=== PATIENT | male | born 1970 | race African-American/Black ===

== ENCOUNTER 2022-08-24 13:44 | Inpatient (IN) ==
[2022-08-24 14:46] LABS: Basophils # 0.1 10*3/uL (0.0-0.2); Basophils % 0.5 % (0.0-0.8); Eosinophils # 0.1 10*3/uL (0.0-0.87); Eosinophils % 0.5 % (0.00-10.9); Hematocrit 43.2 VOL% (42.0-52.0); Hemoglobin 13.6 GM/DL (14.0-18.0); Immature Granulocytes % 0.6 %; Immature Granulocytes Absolute 0.09 #; Lymphocytes # 2.5 10*3/uL (1.4-4.0); Lymphocytes % 16.8 % (21.2-54.2); Mean Corpuscular HGB Conc 31.5 GM/DL (32-36); Mean Corpuscular Volume 76.1 FL (87-102); Monocytes # 1.4 10*3/uL (0.11-0.8); Monocytes % 9.6 % (1.7-12.7); Platelet Count 381 T/CUMM (130-400); Red Blood Count 5.68 MC/CUMM (3.8-5.5); Red Cell Distribution Width 21.2 % (9.3-17.3)
[2022-08-24 15:04] LABS: Alanine Aminotransferase 15 U/L (16-61); Albumin 2.1 G/DL (3.4-5.0); Alkaline Phosphatase 147 U/L (45-117); Aspartate Amino Transferase 37 U/L (0-37); Bilirubin,Total < 0.39 MG/DL (0.20-1.00); Blood Urea Nitrogen 20 MG/DL (7-18); Calcium 8.5 MG/DL (8.5-10.1); Carbon Dioxide 28 MMOL/L (21-32); Chloride 118 MMOL/L (98-107); Glucose 96 MG/DL (74-106); Osmolality,Calculated 305.6 MOS/KG (273-304); Potassium 3.7 MMOL/L (3.5-5.1); Sodium 153 MMOL/L (136-145); Total Protein 7.2 G/DL (6.4-8.2)
[2022-08-24] MEDS ORDERED: SODIUM CHLORIDE 0.9% 1,000 ML IV STA (16:04)
[2022-08-24] MEDS ORDERED: hydrALAZINE 20 MG/1 ML VIAL IV PRN (17:30)
[2022-08-24] MEDS ORDERED: ONDANSETRON 4 MG/2 ML VIAL IV PRN (17:30)
[2022-08-24] MEDS ORDERED: ALBUTEROL/IPRATROPIUM 3 ML NEB RESP TX PRN (17:30)
[2022-08-24] MEDS ORDERED: cefTRIAXone 1,000 MG in SODIUM CHLORIDE 0.9% 100 ML IV SCH (18:00)
[2022-08-24] MEDS: DEXTROSE 5% NACL 0.45% 1,000 ML IV SCH (18:39)
[2022-08-24 19:34] LABS: % Iron Saturation 14.6 % (18-50)
[2022-08-24 19:43] LABS: Folate 4.39 NG/ML (5.38-24.0)
[2022-08-24] MEDS: PIPERACILLIN/TAZOBACTAM 3,375 MG in SODIUM CHLORIDE 0.9% 100 ML IV SCH (20:47)
[2022-08-24] MEDS ORDERED: AZITHROMYCIN INJ 500 MG in SODIUM CHLORIDE 0.9% 250 ML IV SCH (21:00)
[2022-08-24 22:56] LABS: Bilirubin,Urine Negative (Negative); Blood, Urine Negative (Negative); Glucose,Urine (UA) Negative (Negative); Ketones,Urine 15 mg/dL (Negative); Nitrite,Urine Negative (Negative); Protein,Urine 30 mg/dL (Negative); Urine Appearance Clear (Clear); Urine Color Yellow (Yellow); Urine Specific Gravity 1.025 (1.001-1.035); Urine Urobilinogen 0.2 eU/dL (<2.0); Urine pH 5.5 (4.5-8.0)
[2022-08-24 23:00] LABS: Amorphous Crystals,Urine Occasional /HPF (Few); Hyaline Casts,Urine 5 /LPF (0-3); Mucus,Urine Occasional /LPF (Occasional); RBC,Urine 319 /HPF (0-4); Squamous Epithelial Cell,Urine Occasional /HPF (0-10)
[2022-08-25] MEDS: DEXTROSE 5% NACL 0.45% 1,000 ML IV SCH (03:24)
[2022-08-25] MEDS: PIPERACILLIN/TAZOBACTAM 3,375 MG in SODIUM CHLORIDE 0.9% 100 ML IV SCH ×3 (04:22→20:41)
[2022-08-25 06:07] LABS: Basophils % 0.4 % (0.0-0.8); Eosinophils # 0.2 10*3/uL (0.0-0.87); Eosinophils % 2.1 % (0.00-10.9); Hematocrit 35.2 VOL% (42.0-52.0); Immature Granulocytes % 0.5 %; Immature Granulocytes Absolute 0.05 #; Lymphocytes # 1.8 10*3/uL (1.4-4.0); Lymphocytes % 17.2 % (21.2-54.2); Mean Corpuscular HGB Conc 31.3 GM/DL (32-36); Mean Corpuscular Volume 76.2 FL (87-102); Monocytes # 1.3 10*3/uL (0.11-0.8); Monocytes % 12.5 % (1.7-12.7); Neutrophils % 67.3 % (38.7-73.9); Platelet Count 252 T/CUMM (130-400); Red Blood Count 4.62 MC/CUMM (3.8-5.5); Red Cell Distribution Width 20.7 % (9.3-17.3); White Blood Count 10.2 T/CUMM (4-12)
[2022-08-25 06:43] LABS: Alanine Aminotransferase 10 U/L (16-61); Albumin 1.7 G/DL (3.4-5.0); Alkaline Phosphatase 112 U/L (45-117); Aspartate Amino Transferase 27 U/L (0-37); Bilirubin,Total < 0.39 MG/DL (0.20-1.00); Blood Urea Nitrogen 18 MG/DL (7-18); Calcium 7.2 MG/DL (8.5-10.1); Carbon Dioxide 19 MMOL/L (21-32); Chloride 127 MMOL/L (98-107); Cholesterol 76 MG/DL (50-200); Glucose 156 MG/DL (74-106); HDL Cholesterol 13 MG/DL (40-60); Osmolality,Calculated 311.3 MOS/KG (273-304); Potassium 4.1 MMOL/L (3.5-5.1); Risk Ratio 5.85; Sodium 155 MMOL/L (136-145); Total Protein 5.3 G/DL (6.4-8.2); Triglycerides 151 MG/DL (2-150); VLDL Cholesterol 30.2 MG/DL
[2022-08-25] MEDS: DEXTROSE 5% 1,000 ML IV SCH ×2 (10:25→17:59)
[2022-08-25] MEDS: amLODIPine 10 MG TABLET PO SCH (10:49)
[2022-08-25] MEDS ORDERED: ENOXAPARIN 40 MG/0.4 ML SYRINGE SUBCUT SCH (12:00)
[2022-08-25] MEDS ORDERED: VANCOMYCIN 125 MG CAPSULE PO SCH ×2 (14:00→14:30)
[2022-08-25 14:02] LABS: Calcium 7.8 MG/DL (8.5-10.1); Osmolality,Calculated 308.3 MOS/KG (273-304); Potassium 4.2 MMOL/L (3.5-5.1)
[2022-08-25] MEDS: VANCOMYCIN 125 MG CAPSULE PO SCH ×2 (14:36→23:27)
[2022-08-25] MEDS: CHOLECALCIFEROL 1,000 UNIT TABLET PO SCH (14:36)
[2022-08-26] MEDS: DEXTROSE 5% 1,000 ML IV SCH ×3 (00:50→15:00)
[2022-08-26] MEDS: PIPERACILLIN/TAZOBACTAM 3,375 MG in SODIUM CHLORIDE 0.9% 100 ML IV SCH ×2 (03:05→18:35)
[2022-08-26] MEDS: VANCOMYCIN 125 MG CAPSULE PO SCH ×3 (05:39→18:41)
[2022-08-26 05:59] LABS: Basophils % 0.4 % (0.0-0.8); Eosinophils # 0.3 10*3/uL (0.0-0.87); Eosinophils % 4.7 % (0.00-10.9); Hematocrit 36.2 VOL% (42.0-52.0); Hemoglobin 11.5 GM/DL (14.0-18.0); Immature Granulocytes % 0.7 %; Immature Granulocytes Absolute 0.05 #; Lymphocytes % 14.6 % (21.2-54.2); Mean Corpuscular HGB Conc 31.8 GM/DL (32-36); Mean Corpuscular Volume 75.1 FL (87-102); Monocytes # 0.8 10*3/uL (0.11-0.8); Monocytes % 10.6 % (1.7-12.7); Platelet Count 279 T/CUMM (130-400); Red Blood Count 4.82 MC/CUMM (3.8-5.5); Red Cell Distribution Width 20.8 % (9.3-17.3); White Blood Count 7.1 T/CUMM (4-12)
[2022-08-26 06:05] LABS: INR 1.1; PT Patient Result 11.9 SECS (10.1-12.1)
[2022-08-26 06:19] LABS: Alanine Aminotransferase 14 U/L (16-61); Albumin 1.8 G/DL (3.4-5.0); Alkaline Phosphatase 124 U/L (45-117); Aspartate Amino Transferase 43 U/L (0-37); Bilirubin,Total < 0.39 MG/DL (0.20-1.00); Blood Urea Nitrogen 14 MG/DL (7-18); Calcium 7.7 MG/DL (8.5-10.1); Carbon Dioxide 23 MMOL/L (21-32); Chloride 120 MMOL/L (98-107); Glucose 84 MG/DL (74-106); Osmolality,Calculated 298.9 MOS/KG (273-304); Potassium 3.4 MMOL/L (3.5-5.1); Sodium 151 MMOL/L (136-145); Total Protein 6.1 G/DL (6.4-8.2)
[2022-08-26 06:38] LABS: Hypochromia Slight; Microcytosis Slight; Platelet Estimate Adequate; Target Cells Few
[2022-08-26] MEDS: SODIUM CHLORIDE 0.9% 1,000 ML IV SCH (09:04)
[2022-08-26] MEDS ORDERED: propofoL 200 MG/20 ML VIAL IV ONE (09:38)
[2022-08-26] MEDS ORDERED: KETAMINE 500 MG/10 ML VIAL ONE (09:38)
[2022-08-26] MEDS ORDERED: LIDOCAINE 2% 5 ML VIAL ONE (09:38)
[2022-08-26] MEDS: CHOLECALCIFEROL 1,000 UNIT TABLET PO SCH (13:42)
[2022-08-26] MEDS: amLODIPine 10 MG TABLET PO SCH (13:42)
[2022-08-26] MEDS: POTASSIUM CHLORIDE RIDER 10 MEQ/100 ML PREMIX IV PRN ×3 (13:49→16:11)
[2022-08-27] MEDS: VANCOMYCIN 125 MG CAPSULE PO SCH ×4 (00:44→18:22)
[2022-08-27] MEDS: PIPERACILLIN/TAZOBACTAM 3,375 MG in SODIUM CHLORIDE 0.9% 100 ML IV SCH ×2 (02:25→15:10)
[2022-08-27 05:31] LABS: Basophils % 0.2 % (0.0-0.8); Eosinophils # 0.5 10*3/uL (0.0-0.87); Eosinophils % 11.2 % (0.00-10.9); Hematocrit 32.1 VOL% (42.0-52.0); Hemoglobin 10.2 GM/DL (14.0-18.0); Immature Granulocytes % 0.8 %; Immature Granulocytes Absolute 0.04 #; Lymphocytes # 1.5 10*3/uL (1.4-4.0); Lymphocytes % 31.6 % (21.2-54.2); Mean Corpuscular HGB Conc 31.8 GM/DL (32-36); Mean Corpuscular Volume 74.5 FL (87-102); Monocytes # 0.6 10*3/uL (0.11-0.8); Monocytes % 11.4 % (1.7-12.7); Neutrophils % 44.8 % (38.7-73.9); Platelet Count 261 T/CUMM (130-400); Red Blood Count 4.31 MC/CUMM (3.8-5.5); Red Cell Distribution Width 20.8 % (9.3-17.3); White Blood Count 4.8 T/CUMM (4-12)
[2022-08-27 05:47] LABS: Alanine Aminotransferase 15 U/L (16-61); Albumin 1.6 G/DL (3.4-5.0); Alkaline Phosphatase 111 U/L (45-117); Aspartate Amino Transferase 45 U/L (0-37); Bilirubin,Total < 0.39 MG/DL (0.20-1.00); Blood Urea Nitrogen 11 MG/DL (7-18); Calcium 7.9 MG/DL (8.5-10.1); Carbon Dioxide 25 MMOL/L (21-32); Chloride 120 MMOL/L (98-107); Glucose 83 MG/DL (74-106); Potassium 3.2 MMOL/L (3.5-5.1); Sodium 150 MMOL/L (136-145); Total Protein 5.6 G/DL (6.4-8.2)
[2022-08-27] MEDS: POTASSIUM CHLORIDE RIDER 10 MEQ/100 ML PREMIX IV PRN ×4 (06:35→11:20)
[2022-08-27 07:08] LABS: Eosinophils 7 % (0-10); Lymphocytes 29 % (20-55); Platelet Estimate Adequate; Target Cells Slight; Total Cells Counted 100
[2022-08-27] MEDS: DEXTROSE 5% 1,000 ML IV SCH ×2 (09:00→15:19)
[2022-08-27] MEDS: CHOLECALCIFEROL 1,000 UNIT TABLET PO SCH (15:20)
[2022-08-27] MEDS: amLODIPine 10 MG TABLET PO SCH (15:20)
[2022-08-28] MEDS: VANCOMYCIN 125 MG CAPSULE PO SCH ×5 (00:35→23:51)
[2022-08-28] MEDS ORDERED: TISSUE ADHESIVE 1 EACH APPLICATOR TOP ONE (06:14)
[2022-08-28] MEDS ORDERED: propofoL 200 MG/20 ML VIAL IV ONE (06:37)
[2022-08-28] MEDS ORDERED: ROCURONIUM 50 MG/5 ML VIAL IV ONE (06:37)
[2022-08-28] MEDS ORDERED: LIDOCAINE 2% 5 ML VIAL ONE (06:37)
[2022-08-28] MEDS ORDERED: fentaNYL 100 MCG/2 ML VIAL ONE ×2 (06:37→09:39)
[2022-08-28] MEDS: DEXTROSE 5% 1,000 ML IV SCH ×5 (07:35→16:28)
[2022-08-28] MEDS: SODIUM CHLORIDE 0.9% 1,000 ML IV SCH ×2 (07:35→10:22)
[2022-08-28] MEDS: PIPERACILLIN/TAZOBACTAM 3,375 MG in SODIUM CHLORIDE 0.9% 100 ML IV SCH ×3 (07:36→16:19)
[2022-08-28 07:49] LABS: Basophils % 0.5 % (0.0-0.8); Eosinophils # 0.8 10*3/uL (0.0-0.87); Hematocrit 32.3 VOL% (42.0-52.0); Hemoglobin 10.5 GM/DL (14.0-18.0); Immature Granulocytes % 1.1 %; Immature Granulocytes Absolute 0.07 #; Lymphocytes # 1.8 10*3/uL (1.4-4.0); Lymphocytes % 29.3 % (21.2-54.2); Mean Corpuscular HGB Conc 32.5 GM/DL (32-36); Mean Corpuscular Volume 74.1 FL (87-102); Monocytes # 0.5 10*3/uL (0.11-0.8); Monocytes % 8.4 % (1.7-12.7); Neutrophils % 47.7 % (38.7-73.9); Platelet Count 258 T/CUMM (130-400); Red Blood Count 4.36 MC/CUMM (3.8-5.5); Red Cell Distribution Width 20.5 % (9.3-17.3); White Blood Count 6.2 T/CUMM (4-12)
[2022-08-28 08:04] LABS: Eosinophils 14 % (0-10); Hypochromia Slight; Lymphocytes 29 % (20-55); Microcytosis Slight; Platelet Estimate Adequate; Total Cells Counted 100
[2022-08-28 08:19] LABS: Alanine Aminotransferase 15 U/L (16-61); Albumin 1.7 G/DL (3.4-5.0); Alkaline Phosphatase 106 U/L (45-117); Aspartate Amino Transferase 40 U/L (0-37); Bilirubin,Total < 0.39 MG/DL (0.20-1.00); Blood Urea Nitrogen 7 MG/DL (7-18); Calcium 7.3 MG/DL (8.5-10.1); Carbon Dioxide 22 MMOL/L (21-32); Chloride 118 MMOL/L (98-107); Glucose 77 MG/DL (74-106); Osmolality,Calculated 288.4 MOS/KG (273-304); Potassium 3.9 MMOL/L (3.5-5.1); Sodium 147 MMOL/L (136-145); Total Protein 5.2 G/DL (6.4-8.2)
[2022-08-28] MEDS ORDERED: PHENYLEPHRINE 1 MG/10 ML SYRINGE IV ONE (09:09)
[2022-08-28] MEDS ORDERED: ONDANSETRON 4 MG/2 ML VIAL ONE (09:15)
[2022-08-28] MEDS ORDERED: METHYLENE BLUE 10 ML VIAL IV ONE (09:32)
[2022-08-28] MEDS ORDERED: SUGAMMADEX 200 MG/2 ML VIAL IV ONE (09:51)
[2022-08-28] MEDS ORDERED: SEVOFLURANE 1 UNIT/15 MINUTE INH ONE (09:53)
[2022-08-28] MEDS ORDERED: LACTATED RINGERS 1,000 ML IV ONE (09:53)
[2022-08-28] MEDS: amLODIPine 10 MG TABLET PO SCH (10:23)
[2022-08-28] MEDS: CHOLECALCIFEROL 1,000 UNIT TABLET PO SCH (10:23)
[2022-08-28] MEDS ORDERED: HYDROmorphone 1 MG/1 ML SYRINGE ONE (10:43)
[2022-08-28] MEDS ORDERED: HYDROmorphone 1 MG/1 ML SYRINGE IV PRN (10:44)
[2022-08-28] MEDS ORDERED: ONDANSETRON 4 MG/2 ML VIAL IV PRN (10:44)
[2022-08-28 13:54] LABS: Calcium 7.6 MG/DL (8.5-10.1); Osmolality,Calculated 286.7 MOS/KG (273-304)
[2022-08-28] MEDS ORDERED: SODIUM CHLORIDE 0.9% 250 ML IV ONE (20:40)
[2022-08-28] MEDS ORDERED: NOREPINEPHRINE DRIP 8 MG/250 ML PREMIX IV ONE (21:16)
[2022-08-28] MEDS ORDERED: NOREPINEPHRINE DRIP 8 MG/250 ML PREMIX IV PRN (21:23)
[2022-08-28] MEDS ORDERED: SODIUM CHLORIDE 0.9% 1,000 ML IV ONE (22:44)
[2022-08-29] MEDS: DEXTROSE 5% 1,000 ML IV SCH ×3 (01:30→10:10)
[2022-08-29] MEDS: PIPERACILLIN/TAZOBACTAM 3,375 MG in SODIUM CHLORIDE 0.9% 100 ML IV SCH ×3 (01:30→18:18)
[2022-08-29] MEDS: VANCOMYCIN 125 MG CAPSULE PO SCH ×4 (05:42→23:19)
[2022-08-29 08:13] LABS: Calcium 7.2 MG/DL (8.5-10.1); Potassium 4.3 MMOL/L (3.5-5.1)
[2022-08-29 08:16] LABS: Basophils % 0.3 % (0.0-0.8); Eosinophils % 0.2 % (0.00-10.9); Hematocrit 26.9 VOL% (42.0-52.0); Hemoglobin 8.6 GM/DL (14.0-18.0); Immature Granulocytes % 1.9 %; Immature Granulocytes Absolute 0.27 #; Lymphocytes # 2.5 10*3/uL (1.4-4.0); Lymphocytes % 17.3 % (21.2-54.2); Mean Corpuscular Volume 75.8 FL (87-102); Monocytes # 1.1 10*3/uL (0.11-0.8); Monocytes % 7.3 % (1.7-12.7); Platelet Count 288 T/CUMM (130-400); Red Blood Count 3.55 MC/CUMM (3.8-5.5); Red Cell Distribution Width 21.1 % (9.3-17.3); White Blood Count 14.4 T/CUMM (4-12)
[2022-08-29 08:27] LABS: Platelet Estimate Normal
[2022-08-29] MEDS: amLODIPine 10 MG TABLET PO SCH (10:10)
[2022-08-29] MEDS: CHOLECALCIFEROL 1,000 UNIT TABLET PO SCH (10:10)
[2022-08-29] MEDS: SODIUM CHLORIDE 0.9% 1,000 ML IV SCH (10:10)
[2022-08-29 11:51] LABS: Mycoplasma pneumoniae Ab Inter SEE COMMENTS; Mycoplasma pneumoniae Ab, IgG Positive (Negative); Mycoplasma pneumoniae Ab, IgM Negative (Negative)
[2022-08-29] MEDS: BACLOFEN 10 MG TABLET PO SCH ×2 (13:04→18:03)
[2022-08-29] MEDS: DEXTROSE 5% NACL 0.45% 1,000 ML IV SCH ×2 (13:04→20:42)
[2022-08-29] MEDS ORDERED: [UNRECOGNIZED DRUG - OTHER] PO SCH (17:00)
[2022-08-29] MEDS ORDERED: AMINO ACIDS PROTEIN HYDROLYS PO SCH (17:00)
[2022-08-30] MEDS: PIPERACILLIN/TAZOBACTAM 3,375 MG in SODIUM CHLORIDE 0.9% 100 ML IV SCH ×3 (00:28→17:58)
[2022-08-30] MEDS: DEXTROSE 5% NACL 0.45% 1,000 ML IV SCH ×3 (03:27→16:02)
[2022-08-30] MEDS: VANCOMYCIN 125 MG CAPSULE PO SCH ×3 (05:09→17:58)
[2022-08-30 05:41] LABS: Basophils % 0.3 % (0.0-0.8); Eosinophils # 0.3 10*3/uL (0.0-0.87); Hematocrit 19.8 VOL% (42.0-52.0); Hemoglobin 6.5 GM/DL (14.0-18.0); Immature Granulocytes % 1.3 %; Immature Granulocytes Absolute 0.13 #; Lymphocytes # 1.6 10*3/uL (1.4-4.0); Lymphocytes % 16.3 % (21.2-54.2); Mean Corpuscular HGB Conc 32.8 GM/DL (32-36); Mean Corpuscular Volume 74.2 FL (87-102); Mean Platelet Volume 11.6 FL (9.6-12.0); Monocytes # 1.1 10*3/uL (0.11-0.8); Monocytes % 11.3 % (1.7-12.7); Neutrophils % 67.8 % (38.7-73.9); Platelet Count 351 T/CUMM (130-400); Red Blood Count 2.67 MC/CUMM (3.8-5.5); Red Cell Distribution Width 20.7 % (9.3-17.3); White Blood Count 9.8 T/CUMM (4-12)
[2022-08-30 05:45] LABS: Hypochromia 1+
[2022-08-30 05:46] LABS: Microcytosis 1+; Target Cells Slight
[2022-08-30 05:47] LABS: Ovalocytes Slight; Platelet Estimate Normal
[2022-08-30 05:51] LABS: Calcium 7.4 MG/DL (8.5-10.1); Potassium 3.2 MMOL/L (3.5-5.1)
[2022-08-30] MEDS ORDERED: SODIUM CHLORIDE 0.9% 1,000 ML IV PRN (05:51)
[2022-08-30] MEDS: POTASSIUM CHLORIDE RIDER 10 MEQ/100 ML PREMIX IV PRN ×3 (06:11→08:30)
[2022-08-30] MEDS: CHOLECALCIFEROL 1,000 UNIT TABLET PO SCH (08:52)
[2022-08-30] MEDS: amLODIPine 10 MG TABLET PO SCH (08:52)
[2022-08-30] MEDS: SODIUM CHLORIDE 0.9% 1,000 ML IV SCH (08:52)
[2022-08-30] MEDS: ATORVASTATIN 40 MG TABLET PO SCH (08:52)
[2022-08-30] MEDS: BACLOFEN 10 MG TABLET PO SCH ×3 (08:52→17:58)
[2022-08-30] MEDS: PANTOPRAZOLE 40 MG VIAL IV SCH (10:06)
[2022-08-30 15:18] LABS: Hematocrit 30.4 VOL% (42.0-52.0); Hemoglobin 10.2 GM/DL (14.0-18.0)
[2022-08-31] MEDS: PIPERACILLIN/TAZOBACTAM 3,375 MG in SODIUM CHLORIDE 0.9% 100 ML IV SCH ×3 (00:43→16:21)
[2022-08-31] MEDS: VANCOMYCIN 125 MG CAPSULE PO SCH ×4 (01:10→18:30)
[2022-08-31 04:52] LABS: Basophils # 0.1 10*3/uL (0.0-0.2); Basophils % 0.5 % (0.0-0.8); Eosinophils # 0.5 10*3/uL (0.0-0.87); Eosinophils % 5.4 % (0.00-10.9); Hematocrit 30.1 VOL% (42.0-52.0); Hemoglobin 10.3 GM/DL (14.0-18.0); Immature Granulocytes % 2.4 %; Immature Granulocytes Absolute 0.22 #; Lymphocytes # 1.6 10*3/uL (1.4-4.0); Lymphocytes % 17.8 % (21.2-54.2); Mean Corpuscular HGB Conc 34.2 GM/DL (32-36); Mean Corpuscular Volume 77.4 FL (87-102); Mean Platelet Volume 11.1 FL (9.6-12.0); Monocytes # 0.8 10*3/uL (0.11-0.8); Monocytes % 9.2 % (1.7-12.7); Neutrophils % 64.7 % (38.7-73.9); Platelet Count 358 T/CUMM (130-400); Red Blood Count 3.89 MC/CUMM (3.8-5.5); Red Cell Distribution Width 20.3 % (9.3-17.3); White Blood Count 9.1 T/CUMM (4-12)
[2022-08-31 05:07] LABS: Calcium 7.2 MG/DL (8.5-10.1); Osmolality,Calculated 290.3 MOS/KG (273-304); Potassium 3.1 MMOL/L (3.5-5.1)
[2022-08-31] MEDS: SODIUM CHLORIDE 0.9% 1,000 ML IV SCH ×2 (08:26→08:41)
[2022-08-31] MEDS: PANTOPRAZOLE 40 MG VIAL IV SCH (08:27)
[2022-08-31] MEDS: amLODIPine 10 MG TABLET PO SCH (09:14)
[2022-08-31] MEDS: BACLOFEN 10 MG TABLET PO SCH ×3 (09:14→16:03)
[2022-08-31] MEDS: ATORVASTATIN 40 MG TABLET PO SCH (09:14)
[2022-08-31] MEDS: CHOLECALCIFEROL 1,000 UNIT TABLET PO SCH (09:14)
[2022-08-31] MEDS: DEXTROSE 5% NACL 0.45% 1,000 ML IV SCH ×2 (13:00→13:02)
[2022-08-31] MEDS: POTASSIUM CHLORIDE RIDER 10 MEQ/100 ML PREMIX IV PRN ×4 (16:23→20:24)
[2022-09-01] MEDS: VANCOMYCIN 125 MG CAPSULE PO SCH (01:03)
[2022-09-01] MEDS: VANCOMYCIN 50 MG/ML 60 ML/BOTTLE PO SCH ×4 (01:32→17:56)
[2022-09-01] MEDS: PIPERACILLIN/TAZOBACTAM 3,375 MG in SODIUM CHLORIDE 0.9% 100 ML IV SCH (01:32)
[2022-09-01] MEDS: DEXTROSE 5% NACL 0.45% 1,000 ML IV SCH ×2 (06:15→08:25)
[2022-09-01 06:27] LABS: Basophils # 0.1 10*3/uL (0.0-0.2); Basophils % 0.5 % (0.0-0.8); Eosinophils # 0.8 10*3/uL (0.0-0.87); Eosinophils % 5.7 % (0.00-10.9); Hematocrit 35.4 VOL% (42.0-52.0); Hemoglobin 11.9 GM/DL (14.0-18.0); Immature Granulocytes % 2.1 %; Immature Granulocytes Absolute 0.29 #; Lymphocytes # 2.2 10*3/uL (1.4-4.0); Mean Corpuscular HGB Conc 33.6 GM/DL (32-36); Mean Corpuscular Volume 77.8 FL (87-102); Mean Platelet Volume 11.5 FL (9.6-12.0); Monocytes # 1.2 10*3/uL (0.11-0.8); Monocytes % 8.8 % (1.7-12.7); NRBC # 0.02 10*3/uL; Neutrophils % 66.9 % (38.7-73.9); Platelet Count 500 T/CUMM (130-400); Red Blood Count 4.55 MC/CUMM (3.8-5.5); Red Cell Distribution Width 21.4 % (9.3-17.3); White Blood Count 13.7 T/CUMM (4-12)
[2022-09-01 06:40] LABS: Calcium 7.4 MG/DL (8.5-10.1); Potassium 3.2 MMOL/L (3.5-5.1)
[2022-09-01 07:03] LABS: Phosphorous 1.3 MG/DL (2.5-4.9)
[2022-09-01] MEDS ORDERED: FUROSEMIDE 40 MG/4 ML VIAL IV ONE (08:15)
[2022-09-01] MEDS ORDERED: MAGNESIUM SULF RIDER 2 GM/50 ML PREMIX IV ONE (08:22)
[2022-09-01] MEDS: HYDROmorphone 1 MG/1 ML SYRINGE IV PRN (08:27)
[2022-09-01] MEDS: methylPREDNISolone SOD SUC 40 MG/1 ML VIAL IV SCH ×2 (09:03→16:38)
[2022-09-01] MEDS: PANTOPRAZOLE 40 MG VIAL IV SCH (09:05)
[2022-09-01] MEDS: CHOLECALCIFEROL 1,000 UNIT TABLET PO SCH (09:07)
[2022-09-01] MEDS: ATORVASTATIN 40 MG TABLET PO SCH (09:07)
[2022-09-01] MEDS: BACLOFEN 10 MG TABLET PO SCH ×3 (09:07→17:56)
[2022-09-01] MEDS: amLODIPine 10 MG TABLET PO SCH (09:08)
[2022-09-01] MEDS ORDERED: METOPROLOL TARTRATE 5 MG/5 ML VIAL IV ONE (10:33)
[2022-09-01] MEDS: POTASSIUM CHLORIDE RIDER 10 MEQ/100 ML PREMIX IV PRN ×4 (10:47→14:43)
[2022-09-01] MEDS: ALBUTEROL/IPRATROPIUM 3 ML NEB RESP TX SCH ×2 (15:12→19:48)
[2022-09-01] MEDS: ENOXAPARIN 80 MG/0.8 ML SYRINGE SUBCUT SCH (20:57)
[2022-09-02] MEDS: ALBUTEROL/IPRATROPIUM 3 ML NEB RESP TX SCH ×4 (00:21→19:21)
[2022-09-02] MEDS: methylPREDNISolone SOD SUC 40 MG/1 ML VIAL IV SCH ×3 (01:03→21:21)
[2022-09-02] MEDS: VANCOMYCIN 50 MG/ML 60 ML/BOTTLE PO SCH ×4 (01:06→17:51)
[2022-09-02] MEDS: HYDROmorphone 1 MG/1 ML SYRINGE IV PRN ×3 (01:29→14:47)
[2022-09-02 05:58] LABS: Basophils # 0.1 10*3/uL (0.0-0.2); Basophils % 0.4 % (0.0-0.8); Eosinophils % 0.1 % (0.00-10.9); Hematocrit 38.6 VOL% (42.0-52.0); Hemoglobin 12.5 GM/DL (14.0-18.0); Immature Granulocytes % 2.2 %; Immature Granulocytes Absolute 0.35 #; Lymphocytes # 1.7 10*3/uL (1.4-4.0); Lymphocytes % 10.7 % (21.2-54.2); Mean Corpuscular HGB Conc 32.4 GM/DL (32-36); Mean Corpuscular Volume 79.9 FL (87-102); Mean Platelet Volume 10.6 FL (9.6-12.0); Monocytes # 0.7 10*3/uL (0.11-0.8); Monocytes % 4.5 % (1.7-12.7); NRBC # 0.04 10*3/uL; Neutrophils % 82.1 % (38.7-73.9); Platelet Count 537 T/CUMM (130-400); Red Blood Count 4.83 MC/CUMM (3.8-5.5); Red Cell Distribution Width 22.4 % (9.3-17.3); White Blood Count 15.7 T/CUMM (4-12)
[2022-09-02 06:18] LABS: Bilirubin,Total 0.6 MG/DL (0.20-1.00); Calcium 8.1 MG/DL (8.5-10.1); Osmolality,Calculated 284.8 MOS/KG (273-304); Potassium 5.4 MMOL/L (3.5-5.1); Total Protein 6.1 G/DL (6.4-8.2)
[2022-09-02 06:47] LABS: Platelet Estimate Increased; Target Cells 1+
[2022-09-02] MEDS: CHOLECALCIFEROL 1,000 UNIT TABLET PO SCH (09:15)
[2022-09-02] MEDS: metroNIDAZOLE INJ 500 MG/100 ML PREMIX IV SCH ×2 (09:15→19:05)
[2022-09-02] MEDS: PANTOPRAZOLE 40 MG VIAL IV SCH (09:15)
[2022-09-02] MEDS: ENOXAPARIN 80 MG/0.8 ML SYRINGE SUBCUT SCH ×2 (09:15→21:23)
[2022-09-02] MEDS: BACLOFEN 10 MG TABLET PO SCH ×3 (09:15→17:51)
[2022-09-02] MEDS: ATORVASTATIN 40 MG TABLET PO SCH (09:16)
[2022-09-02] MEDS: amLODIPine 10 MG TABLET PO SCH (09:16)
[2022-09-02] MEDS: FAT EMULSION 20% 250 ML IV SCH (15:18)
[2022-09-02] MEDS: [UNRECOGNIZED DRUG - OTHER] IV SCH (17:29)
[2022-09-02] MEDS: MULTIVITAMIN IV SCH (17:29)
[2022-09-02] MEDS: POTASSIUM PHOSPHATE IV SCH (17:29)
[2022-09-02] MEDS: MENTHOL/ZINC OXIDE OINT 71 GM JAR TOP SCH (21:21)
[2022-09-03] MEDS: ALBUTEROL/IPRATROPIUM 3 ML NEB RESP TX SCH ×4 (00:08→19:25)
[2022-09-03] MEDS: VANCOMYCIN 50 MG/ML 60 ML/BOTTLE PO SCH ×5 (00:09→23:48)
[2022-09-03] MEDS: metroNIDAZOLE INJ 500 MG/100 ML PREMIX IV SCH ×4 (00:12→23:48)
[2022-09-03] MEDS: HYDROmorphone 1 MG/1 ML SYRINGE IV PRN ×5 (02:09→21:53)
[2022-09-03 06:26] LABS: Phosphorous 1.7 MG/DL (2.5-4.9)
[2022-09-03 06:43] LABS: Calcium 7.5 MG/DL (8.5-10.1); Osmolality,Calculated 278.4 MOS/KG (273-304); Potassium 4.3 MMOL/L (3.5-5.1)
[2022-09-03 08:22] LABS: Basophils # 0.1 10*3/uL (0.0-0.2); Basophils % 0.3 % (0.0-0.8); Hematocrit 37.4 VOL% (42.0-52.0); Hemoglobin 12.3 GM/DL (14.0-18.0); Immature Granulocytes % 2.8 %; Immature Granulocytes Absolute 0.49 #; Lymphocytes % 5.6 % (21.2-54.2); Mean Corpuscular HGB Conc 32.9 GM/DL (32-36); Mean Corpuscular Volume 78.4 FL (87-102); Mean Platelet Volume 10.7 FL (9.6-12.0); Monocytes # 1.3 10*3/uL (0.11-0.8); Monocytes % 7.7 % (1.7-12.7); NRBC # 0.16 10*3/uL; Neutrophils % 83.6 % (38.7-73.9); Platelet Count 556 T/CUMM (130-400); Red Blood Count 4.77 MC/CUMM (3.8-5.5); Red Cell Distribution Width 22.5 % (9.3-17.3); White Blood Count 17.4 T/CUMM (4-12)
[2022-09-03 08:41] LABS: Platelet Estimate Increased
[2022-09-03 08:42] LABS: Anisocytosis 1+; Burr Cells Few; Target Cells Few
[2022-09-03] MEDS: ENOXAPARIN 80 MG/0.8 ML SYRINGE SUBCUT SCH ×2 (08:59→21:36)
[2022-09-03] MEDS: CHOLECALCIFEROL 1,000 UNIT TABLET PO SCH (08:59)
[2022-09-03] MEDS: BACLOFEN 10 MG TABLET PO SCH ×3 (08:59→17:23)
[2022-09-03] MEDS: PANTOPRAZOLE 40 MG VIAL IV SCH (08:59)
[2022-09-03] MEDS: amLODIPine 10 MG TABLET PO SCH (09:00)
[2022-09-03] MEDS: MENTHOL/ZINC OXIDE OINT 71 GM JAR TOP SCH ×2 (09:00→21:27)
[2022-09-03] MEDS: ATORVASTATIN 40 MG TABLET PO SCH (09:00)
[2022-09-03] MEDS: methylPREDNISolone SOD SUC 40 MG/1 ML VIAL IV SCH ×2 (09:00→21:47)
[2022-09-03] MEDS: FAT EMULSION 20% 250 ML IV SCH (14:26)
[2022-09-03] MEDS: POTASSIUM PHOSPHATE IV SCH (17:26)
[2022-09-03] MEDS: MULTIVITAMIN IV SCH (17:26)
[2022-09-03] MEDS: [UNRECOGNIZED DRUG - OTHER] IV SCH (17:26)
[2022-09-04] MEDS: ALBUTEROL/IPRATROPIUM 3 ML NEB RESP TX SCH ×4 (01:15→19:10)
[2022-09-04] MEDS: VANCOMYCIN 50 MG/ML 60 ML/BOTTLE PO SCH ×3 (05:15→17:32)
[2022-09-04 05:48] LABS: Basophils % 0.2 % (0.0-0.8); Hematocrit 34.1 VOL% (42.0-52.0); Hemoglobin 11.2 GM/DL (14.0-18.0); Immature Granulocytes % 3.1 %; Immature Granulocytes Absolute 0.35 #; Lymphocytes # 0.6 10*3/uL (1.4-4.0); Lymphocytes % 5.4 % (21.2-54.2); Mean Corpuscular HGB Conc 32.8 GM/DL (32-36); Mean Platelet Volume 11.5 FL (9.6-12.0); Monocytes # 0.8 10*3/uL (0.11-0.8); Monocytes % 6.7 % (1.7-12.7); NRBC # 0.13 10*3/uL; Neutrophils % 84.6 % (38.7-73.9); Platelet Count 476 T/CUMM (130-400); Red Blood Count 4.37 MC/CUMM (3.8-5.5); Red Cell Distribution Width 22.9 % (9.3-17.3); White Blood Count 11.2 T/CUMM (4-12)
[2022-09-04 06:11] LABS: Albumin 1.8 G/DL (3.4-5.0); Bilirubin,Total 0.4 MG/DL (0.20-1.00); Calcium 7.7 MG/DL (8.5-10.1); Osmolality,Calculated 282.1 MOS/KG (273-304); Phosphorous 1.4 MG/DL (2.5-4.9); Potassium 4.6 MMOL/L (3.5-5.1); Total Protein 5.7 G/DL (6.4-8.2)
[2022-09-04 06:17] LABS: Platelet Estimate Increased; Target Cells 2+
[2022-09-04] MEDS: methylPREDNISolone SOD SUC 40 MG/1 ML VIAL IV SCH ×2 (10:30→21:42)
[2022-09-04] MEDS: ENOXAPARIN 80 MG/0.8 ML SYRINGE SUBCUT SCH ×2 (10:30→21:36)
[2022-09-04] MEDS: MENTHOL/ZINC OXIDE OINT 71 GM JAR TOP SCH ×2 (10:31→21:42)
[2022-09-04] MEDS: amLODIPine 10 MG TABLET PO SCH (10:31)
[2022-09-04] MEDS: BACLOFEN 10 MG TABLET PO SCH ×3 (10:31→17:31)
[2022-09-04] MEDS: CHOLECALCIFEROL 1,000 UNIT TABLET PO SCH (10:31)
[2022-09-04] MEDS: PANTOPRAZOLE 40 MG VIAL IV SCH (10:31)
[2022-09-04] MEDS: ATORVASTATIN 40 MG TABLET PO SCH (10:31)
[2022-09-04] MEDS: metroNIDAZOLE INJ 500 MG/100 ML PREMIX IV SCH (10:34)
[2022-09-04] MEDS ORDERED: SODIUM PHOSPHATE INJ 30 MMOL in SODIUM CHLORIDE 0.9% 250 ML IV ONE (14:00)
[2022-09-04] MEDS: FAT EMULSION 20% 250 ML IV SCH (15:06)
[2022-09-04] MEDS: HYDROmorphone 1 MG/1 ML SYRINGE IV PRN (15:09)
[2022-09-04] MEDS: MULTIVITAMIN IV SCH (17:30)
[2022-09-04] MEDS: POTASSIUM PHOSPHATE IV SCH (17:30)
[2022-09-04] MEDS: [UNRECOGNIZED DRUG - OTHER] IV SCH (17:30)
[2022-09-05] MEDS: ALBUTEROL/IPRATROPIUM 3 ML NEB RESP TX SCH ×4 (00:23→19:10)
[2022-09-05] MEDS: VANCOMYCIN 50 MG/ML 60 ML/BOTTLE PO SCH ×4 (01:29→17:39)
[2022-09-05 05:35] LABS: Basophils % 0.2 % (0.0-0.8); Hematocrit 32.3 VOL% (42.0-52.0); Hemoglobin 10.6 GM/DL (14.0-18.0); Immature Granulocytes % 2.6 %; Immature Granulocytes Absolute 0.35 #; Lymphocytes # 0.6 10*3/uL (1.4-4.0); Lymphocytes % 4.3 % (21.2-54.2); Mean Corpuscular HGB Conc 32.8 GM/DL (32-36); Mean Platelet Volume 10.3 FL (9.6-12.0); Monocytes % 7.5 % (1.7-12.7); NRBC # 0.05 10*3/uL; Neutrophils % 85.4 % (38.7-73.9); Platelet Count 451 T/CUMM (130-400); Red Blood Count 4.14 MC/CUMM (3.8-5.5); Red Cell Distribution Width 23.2 % (9.3-17.3); White Blood Count 13.5 T/CUMM (4-12)
[2022-09-05 05:59] LABS: Albumin 1.9 G/DL (3.4-5.0); Bilirubin,Total 0.4 MG/DL (0.20-1.00); Calcium 7.3 MG/DL (8.5-10.1); Lymphocytes 1 % (20-55); Osmolality,Calculated 285.1 MOS/KG (273-304); Phosphorous 2.1 MG/DL (2.5-4.9); Platelet Estimate Adequate; Potassium 3.2 MMOL/L (3.5-5.1); Total Protein 5.6 G/DL (6.4-8.2)
[2022-09-05 06:00] LABS: Hypochromia Slight; Microcytosis Slight; Total Cells Counted 100
[2022-09-05] MEDS: POTASSIUM CHLORIDE RIDER 10 MEQ/100 ML PREMIX IV PRN ×5 (06:15→19:47)
[2022-09-05] MEDS: ENOXAPARIN 80 MG/0.8 ML SYRINGE SUBCUT SCH ×2 (10:37→23:02)
[2022-09-05] MEDS: methylPREDNISolone SOD SUC 40 MG/1 ML VIAL IV SCH ×2 (10:37→23:03)
[2022-09-05] MEDS: BACLOFEN 10 MG TABLET PO SCH ×3 (10:38→17:39)
[2022-09-05] MEDS: PANTOPRAZOLE 40 MG VIAL IV SCH ×2 (10:38→23:03)
[2022-09-05] MEDS: CHOLECALCIFEROL 1,000 UNIT TABLET PO SCH (10:38)
[2022-09-05] MEDS: ATORVASTATIN 40 MG TABLET PO SCH (10:38)
[2022-09-05] MEDS: amLODIPine 10 MG TABLET PO SCH (10:39)
[2022-09-05] MEDS: MENTHOL/ZINC OXIDE OINT 71 GM JAR TOP SCH ×2 (10:39→23:02)
[2022-09-05] MEDS: ACETAMINOPHEN 325 MG TABLET PO PRN ×2 (10:39→18:20)
[2022-09-05] MEDS: FAT EMULSION 20% 250 ML IV SCH (14:26)
[2022-09-05] MEDS: POTASSIUM PHOSPHATE IV SCH (17:49)
[2022-09-05] MEDS: [UNRECOGNIZED DRUG - OTHER] IV SCH (17:49)
[2022-09-05] MEDS: MULTIVITAMIN IV SCH (17:49)
[2022-09-05] MEDS ORDERED: METOPROLOL TARTRATE 5 MG/5 ML VIAL IV ONE (18:11)
[2022-09-05 20:14] LABS: Bacteria,Urine Occasional /HPF (Few); Bilirubin,Urine Negative (Negative); Blood, Urine Small mg/dL (Negative); Glucose,Urine (UA) Negative (Negative); Ketones,Urine Negative (Negative); Mucus,Urine Occasional /LPF (Occasional); Nitrite,Urine Negative (Negative); Protein,Urine Negative (Negative); RBC,Urine 17 /HPF (0-4); Urine Appearance Clear (Clear); Urine Color Yellow (Yellow); Urine Specific Gravity 1.003 (1.001-1.035); Urine pH 5.5 (4.5-8.0)
[2022-09-05 20:15] LABS: Urine Urobilinogen 0.2 eU/dL (<2.0)
[2022-09-05] MEDS ORDERED: VANCOMYCIN INJ 1,000 MG in SODIUM CHLORIDE 0.9% 250 ML IV ONE ×2 (21:11→21:30)
[2022-09-05] MEDS ORDERED: PIPERACILLIN/TAZOBACTAM 3,375 MG in SODIUM CHLORIDE 0.9% 100 ML IV ONE (21:12)
[2022-09-05] MEDS ORDERED: DILTIAZEM 50 MG/10 ML VIAL IV ONE (22:22)
[2022-09-05] MEDS ORDERED: DILTIAZEM 25 MG/5 ML VIAL IV STA (22:26)
[2022-09-05 22:50] LABS: Arterial Base Excess iSTAT -1 MMOL/L (-2.5-2.5); Arterial Bicarbonate iSTAT 20.8 MMOL/L (20-26); Arterial O2 Saturation iSTAT 92 % (95-100); Arterial PCO2 iSTAT 26 MM HG (35-48); Arterial PO2 iSTAT 56 MM HG (80-95); Arterial Total CO2 iSTAT 22 MMO/L (23-27); Arterial pH iSTAT 7.517 (7.35-7.45)
[2022-09-05] MEDS: DILTIAZEM INJ 100 MG in SODIUM CHLORIDE 0.9% 100 ML IV SCH (23:36)
[2022-09-06 00:26] LABS: Basophils % 0.2 % (0.0-0.8); Calcium 7.4 MG/DL (8.5-10.1); Eosinophils % 0.1 % (0.00-10.9); Hematocrit 36.2 VOL% (42.0-52.0); Hemoglobin 11.6 GM/DL (14.0-18.0); Immature Granulocytes % 4.7 %; Immature Granulocytes Absolute 1.25 #; Lymphocytes # 0.7 10*3/uL (1.4-4.0); Lymphocytes % 2.6 % (21.2-54.2); Mean Corpuscular Volume 80.4 FL (87-102); Mean Platelet Volume 11.2 FL (9.6-12.0); Monocytes # 0.6 10*3/uL (0.11-0.8); Monocytes % 2.4 % (1.7-12.7); NRBC # 0.12 10*3/uL; Osmolality,Calculated 283.1 MOS/KG (273-304); Platelet Count 307 T/CUMM (130-400); Potassium 3.4 MMOL/L (3.5-5.1); Red Cell Distribution Width 23.9 % (9.3-17.3); White Blood Count 26.5 T/CUMM (4-12)
[2022-09-06] MEDS: LEVALBUTEROL 1.25 MG/3 ML NEB RESP TX SCH ×6 (00:30→19:56)
[2022-09-06 00:55] LABS: Lymphocytes 3 % (20-55); Platelet Estimate Adequate; Total Cells Counted 100
[2022-09-06 00:56] LABS: Hypochromia Slight; Stomatocytes Few; Target Cells Few
[2022-09-06 00:57] LABS: Microcytosis Slight
[2022-09-06] MEDS: VANCOMYCIN 50 MG/ML 60 ML/BOTTLE PO SCH ×4 (01:09→17:34)
[2022-09-06] MEDS ORDERED: MAGNESIUM SULF RIDER 2 GM/50 ML PREMIX IV ONE (01:30)
[2022-09-06] MEDS: DILTIAZEM INJ 100 MG in SODIUM CHLORIDE 0.9% 100 ML IV SCH ×3 (04:14→17:46)
[2022-09-06] MEDS: POTASSIUM CHLORIDE RIDER 10 MEQ/100 ML PREMIX IV PRN ×2 (04:14→06:28)
[2022-09-06] MEDS: ENOXAPARIN 80 MG/0.8 ML SYRINGE SUBCUT SCH (10:26)
[2022-09-06] MEDS: methylPREDNISolone SOD SUC 40 MG/1 ML VIAL IV SCH ×2 (10:30→21:11)
[2022-09-06] MEDS: PANTOPRAZOLE 40 MG VIAL IV SCH ×2 (10:30→21:11)
[2022-09-06] MEDS: PIPERACILLIN/TAZOBACTAM 3,375 MG in SODIUM CHLORIDE 0.9% 100 ML IV SCH ×3 (10:31→17:48)
[2022-09-06] MEDS: MENTHOL/ZINC OXIDE OINT 71 GM JAR TOP SCH ×2 (10:32→21:10)
[2022-09-06] MEDS: VANCOMYCIN INJ 1,000 MG in SODIUM CHLORIDE 0.9% 250 ML IV SCH (11:20)
[2022-09-06] MEDS: amLODIPine 10 MG TABLET PO SCH (11:20)
[2022-09-06] MEDS: ATORVASTATIN 40 MG TABLET PO SCH (11:20)
[2022-09-06] MEDS: BACLOFEN 10 MG TABLET PO SCH ×2 (11:20→15:20)
[2022-09-06] MEDS: CHOLECALCIFEROL 1,000 UNIT TABLET PO SCH (11:20)
[2022-09-06] MEDS: FAT EMULSION 20% 250 ML IV SCH (15:19)
[2022-09-06] MEDS ORDERED: DEXTROSE 10% 1,000 ML IV PRN (17:00)
[2022-09-06] MEDS: SODIUM CHLORIDE 0.9% 1,000 ML IV SCH (17:33)
[2022-09-06] MEDS: ACETAMINOPHEN 325 MG TABLET PO PRN (17:34)
[2022-09-06] MEDS: MULTIVITAMIN INJ 10 ML in AMINO ACIDS/DEXT/LYTES 4.25-5% 2,000 ML IV SCH (17:36)
[2022-09-06] MEDS: OSELTAMIVIR 75 MG CAPSULE PO SCH (21:10)
[2022-09-07] MEDS: VANCOMYCIN INJ 1,000 MG in SODIUM CHLORIDE 0.9% 250 ML IV SCH ×2 (00:29→16:22)
[2022-09-07] MEDS: PIPERACILLIN/TAZOBACTAM 3,375 MG in SODIUM CHLORIDE 0.9% 100 ML IV SCH ×3 (00:29→16:31)
[2022-09-07] MEDS: DILTIAZEM INJ 100 MG in SODIUM CHLORIDE 0.9% 100 ML IV SCH ×2 (00:30→10:11)
[2022-09-07] MEDS: LEVALBUTEROL 1.25 MG/3 ML NEB RESP TX SCH ×7 (00:40→23:10)
[2022-09-07] MEDS: VANCOMYCIN 50 MG/ML 60 ML/BOTTLE PO SCH ×3 (00:52→14:03)
[2022-09-07 05:47] LABS: Calcium 7.1 MG/DL (8.5-10.1); Osmolality,Calculated 298.8 MOS/KG (273-304); Phosphorous 2.2 MG/DL (2.5-4.9); Potassium 3.7 MMOL/L (3.5-5.1)
[2022-09-07] MEDS ORDERED: ENOXAPARIN 40 MG/0.4 ML SYRINGE SUBCUT SCH (09:00)
[2022-09-07] MEDS: methylPREDNISolone SOD SUC 40 MG/1 ML VIAL IV SCH ×2 (10:07→20:28)
[2022-09-07] MEDS: OSELTAMIVIR 75 MG CAPSULE PO SCH (10:08)
[2022-09-07] MEDS: ATORVASTATIN 40 MG TABLET PO SCH (10:09)
[2022-09-07] MEDS: MENTHOL/ZINC OXIDE OINT 71 GM JAR TOP SCH ×2 (10:09→20:25)
[2022-09-07] MEDS: CHOLECALCIFEROL 1,000 UNIT TABLET PO SCH (10:09)
[2022-09-07] MEDS: PANTOPRAZOLE 40 MG VIAL IV SCH ×2 (10:10→20:25)
[2022-09-07] MEDS: amLODIPine 10 MG TABLET PO SCH (10:46)
[2022-09-07 11:56] LABS: Basophils % 0.1 % (0.0-0.8); Immature Granulocytes % 2.3 %; Immature Granulocytes Absolute 0.65 #; Lymphocytes # 1.8 10*3/uL (1.4-4.0); Lymphocytes % 6.2 % (21.2-54.2); Mean Corpuscular HGB Conc 32.2 GM/DL (32-36); Mean Corpuscular Volume 82.5 FL (87-102); Monocytes # 2.7 10*3/uL (0.11-0.8); Monocytes % 9.5 % (1.7-12.7); NRBC # 0.15 10*3/uL; Neutrophils % 81.9 % (38.7-73.9); Platelet Count 126 T/CUMM (130-400); Red Blood Count 1.77 MC/CUMM (3.8-5.5); Red Cell Distribution Width 23.9 % (9.3-17.3); White Blood Count 28.9 T/CUMM (4-12)
[2022-09-07 11:58] LABS: Hematocrit 14.6 VOL% (42.0-52.0); Hemoglobin 4.7 GM/DL (14.0-18.0)
[2022-09-07] MEDS ORDERED: ATROPINE 1 MG/10 ML SYRINGE IV ONE (12:10)
[2022-09-07] MEDS ORDERED: EPINEPHrine 1 MG/10 ML SYRINGE IV ONE (12:11)
[2022-09-07] MEDS ORDERED: SODIUM BICARBONATE 50 MEQ/50 ML SYRINGE IV ONE (12:12)
[2022-09-07 12:35] LABS: Anisocytosis 1+; Band Neutrophils 1 % (0-10); Hypochromia 1+; Lymphocytes 3 % (20-55); Metamyelocytes 1 %; Total Cells Counted 100
[2022-09-07 12:36] LABS: Microcytosis 1+; Schistocytes Slight; Target Cells Few
[2022-09-07 12:38] LABS: Platelet Estimate Decreased
[2022-09-07] MEDS ORDERED: SODIUM CHLORIDE 0.9% 1,000 ML IV ONE ×2 (12:45→13:15)
[2022-09-07] MEDS ORDERED: CALCIUM GLUCONATE RIDER 1,000 MG/50 ML PREMIX IV ONE (12:49)
[2022-09-07] MEDS ORDERED: SODIUM CHLORIDE 0.9% 1,000 ML IV PRN ×2 (12:53→14:18)
[2022-09-07] MEDS ORDERED: NOREPINEPHRINE DRIP 8 MG/250 ML PREMIX IV ONE (12:59)
[2022-09-07] MEDS: NOREPINEPHRINE DRIP 8 MG/250 ML PREMIX IV PRN ×2 (13:02→21:35)
[2022-09-07] MEDS ORDERED: SODIUM BICARBONATE 50 MEQ/50 ML VIAL IV ONE ×6 (13:13→15:02)
[2022-09-07 13:23] LABS: Arterial Bicarbonate iSTAT 12.5 MMOL/L (20-26); Arterial pH iSTAT 6.881 (7.35-7.45)
[2022-09-07 13:33] LABS: INR 1.3; PT Patient Result 14.3 SECS (10.1-12.1); Partial Thromboplastin Time 64.5 SECS (23.7-32.9)
[2022-09-07 13:39] LABS: Alanine Aminotransferase 45 U/L (16-61); Alkaline Phosphatase 95 U/L (45-117); Aspartate Amino Transferase 91 U/L (0-37); Bilirubin,Total < 0.39 MG/DL (0.20-1.00); Blood Urea Nitrogen 35 MG/DL (7-18); Calcium 6.1 MG/DL (8.5-10.1); Carbon Dioxide 13 MMOL/L (21-32); Chloride 118 MMOL/L (98-107); Glucose 213 MG/DL (74-106); Osmolality,Calculated 309.1 MOS/KG (273-304); Potassium 4.1 MMOL/L (3.5-5.1); Sodium 149 MMOL/L (136-145); Total Protein 3.1 G/DL (6.4-8.2)
[2022-09-07 13:43] LABS: Arterial Bicarbonate iSTAT 11.4 MMOL/L (20-26); Arterial pH iSTAT 7.015 (7.35-7.45)
[2022-09-07] MEDS: SODIUM CHLORIDE 0.9% 1,000 ML IV SCH (14:03)
[2022-09-07] MEDS ORDERED: MIDAZOLAM 2 MG/2 ML VIAL ONE (14:13)
[2022-09-07 14:59] LABS: Arterial PO2 iSTAT 99 MM HG (80-95)
[2022-09-07 14:59] LABS: Arterial Bicarbonate iSTAT 18.6 MMOL/L (20-26); Arterial pH iSTAT 7.093 (7.35-7.45)
[2022-09-07] MEDS ORDERED: SEVOFLURANE 1 UNIT/15 MINUTE INH ONE (15:54)
[2022-09-07] MEDS ORDERED: ROCURONIUM 50 MG/5 ML VIAL IV ONE (15:54)
[2022-09-07] MEDS ORDERED: METOPROLOL TARTRATE 5 MG/5 ML VIAL IV PRN (16:14)
[2022-09-07] MEDS: MULTIVITAMIN INJ 10 ML in AMINO ACIDS/DEXT/LYTES 4.25-5% 2,000 ML IV SCH (16:26)
[2022-09-07] MEDS: FAT EMULSION 20% 250 ML IV SCH (16:31)
[2022-09-07] MEDS: MICAFUNGIN 100 MG in SODIUM CHLORIDE 0.9% 100 ML IV SCH (16:32)
[2022-09-07] MEDS ORDERED: VANCOMYCIN 50 MG/ML 60 ML/BOTTLE PO SCH (17:00)
[2022-09-07] MEDS: HYDROmorphone 1 MG/1 ML SYRINGE IV PRN ×2 (17:19→21:18)
[2022-09-07 21:04] LABS: ABG Base Excess -2.5 MMOL/L (-2.5-2.5); ABG Oxygen Saturation 84.3 % (95-100); ABG PH 7.391 (7.35-7.45); ABG PO2 46.4 MM HG (80-95); ABG TCO2 19.3 MMOL/L (23-27)
[2022-09-07 21:04] LABS: Hematocrit 37.5 VOL% (42.0-52.0)
[2022-09-07 21:04] LABS: ABG Base Excess -19.6 MMOL/L (-2.5-2.5); ABG HCO3 9.6 MMOL/L (20-26); ABG Oxygen Saturation 93.1 % (95-100); ABG PCO2 67.9 MM HG (35-48); ABG TCO2 13.5 MMOL/L (23-27)
[2022-09-07 21:06] LABS: ABG PH 6.888 (7.35-7.45)
[2022-09-07 21:28] LABS: INR 1.1; PT Patient Result 11.6 SECS (10.1-12.1)
[2022-09-07 22:07] LABS: Partial Thromboplastin Time 36.2 SECS (23.7-32.9)
[2022-09-07] MEDS ORDERED: FUROSEMIDE 40 MG/4 ML VIAL IV ONE (22:30)
[2022-09-08] MEDS: PIPERACILLIN/TAZOBACTAM 3,375 MG in SODIUM CHLORIDE 0.9% 100 ML IV SCH ×2 (00:40→09:18)
[2022-09-08] MEDS: INSULIN REGULAR 100 UNIT/ML SUBCUT SCH ×4 (01:13→18:15)
[2022-09-08] MEDS: HYDROmorphone 1 MG/1 ML SYRINGE IV PRN ×5 (01:20→20:08)
[2022-09-08] MEDS: LEVALBUTEROL 1.25 MG/3 ML NEB RESP TX SCH ×6 (03:00→23:42)
[2022-09-08 04:23] LABS: ABG Base Excess -2.7 MMOL/L (-2.5-2.5); ABG HCO3 22.1 MMOL/L (20-26); ABG Oxygen Saturation 95.5 % (95-100); ABG PCO2 37.1 MM HG (35-48); ABG PO2 78.2 MM HG (80-95); ABG TCO2 19.7 MMOL/L (23-27)
[2022-09-08 04:25] LABS: Basophils # 0.1 10*3/uL (0.0-0.2); Basophils % 0.4 % (0.0-0.8); Hematocrit 32.1 VOL% (42.0-52.0); Hemoglobin 11.9 GM/DL (14.0-18.0); Immature Granulocytes % 0.9 %; Immature Granulocytes Absolute 0.21 #; Lymphocytes # 0.6 10*3/uL (1.4-4.0); Lymphocytes % 2.7 % (21.2-54.2); Mean Corpuscular HGB Conc 37.1 GM/DL (32-36); Mean Corpuscular Volume 82.3 FL (87-102); Monocytes # 0.8 10*3/uL (0.11-0.8); Monocytes % 3.3 % (1.7-12.7); NRBC # 0.17 10*3/uL; Neutrophils % 92.7 % (38.7-73.9); Platelet Count 70 T/CUMM (130-400); Red Cell Distribution Width 16.3 % (9.3-17.3); White Blood Count 22.6 T/CUMM (4-12)
[2022-09-08 04:43] LABS: Calcium 6.1 MG/DL (8.5-10.1); Osmolality,Calculated 314.4 MOS/KG (273-304); Potassium 3.6 MMOL/L (3.5-5.1)
[2022-09-08 04:46] LABS: Band Neutrophils 5 % (0-10); Lymphocytes 3 % (20-55); Nucleated Red Blood Cells 3 /100 WBC (0-5); Platelet Estimate Decreased; Total Cells Counted 100
[2022-09-08] MEDS ORDERED: INSULIN REGULAR 100 UNIT/ML SUBCUT SCH (06:00)
[2022-09-08] MEDS: CEFEPIME 1,000 MG in SODIUM CHLORIDE 0.9% 100 ML IV SCH ×2 (09:10→16:50)
[2022-09-08] MEDS: MENTHOL/ZINC OXIDE OINT 71 GM JAR TOP SCH ×2 (09:18→20:08)
[2022-09-08] MEDS: methylPREDNISolone SOD SUC 40 MG/1 ML VIAL IV SCH ×2 (09:18→20:10)
[2022-09-08] MEDS: PANTOPRAZOLE 40 MG VIAL IV SCH ×2 (09:18→20:08)
[2022-09-08] MEDS ORDERED: CALCIUM GLUCONATE RIDER 1,000 MG/50 ML PREMIX IV ONE (09:26)
[2022-09-08] MEDS ORDERED: ALBUMIN 25% 25 GM/100 ML VIAL IV ONE (09:27)
[2022-09-08] MEDS: metroNIDAZOLE INJ 500 MG/100 ML PREMIX IV SCH ×2 (10:03→17:34)
[2022-09-08] MEDS ORDERED: FUROSEMIDE 40 MG/4 ML VIAL IV ONE (10:30)
[2022-09-08] MEDS: NOREPINEPHRINE DRIP 8 MG/250 ML PREMIX IV PRN (13:20)
[2022-09-08] MEDS: MULTIVITAMIN INJ 10 ML in AMINO ACIDS/DEXT/LYTES 4.25-5% 2,000 ML IV SCH (15:02)
[2022-09-08] MEDS: MICAFUNGIN 100 MG in SODIUM CHLORIDE 0.9% 100 ML IV SCH (16:50)
[2022-09-09] MEDS: CEFEPIME 1,000 MG in SODIUM CHLORIDE 0.9% 100 ML IV SCH ×3 (00:20→16:44)
[2022-09-09] MEDS: metroNIDAZOLE INJ 500 MG/100 ML PREMIX IV SCH ×3 (00:50→17:22)
[2022-09-09] MEDS: INSULIN REGULAR 100 UNIT/ML SUBCUT SCH ×4 (00:51→18:30)
[2022-09-09] MEDS: LEVALBUTEROL 1.25 MG/3 ML NEB RESP TX SCH ×5 (03:24→19:43)
[2022-09-09 04:20] LABS: ABG HCO3 23.6 MMOL/L (20-26); ABG Oxygen Saturation 99.2 % (95-100); ABG PCO2 42.1 MM HG (35-48); ABG TCO2 21.9 MMOL/L (23-27)
[2022-09-09 04:22] LABS: Basophils # 0.1 10*3/uL (0.0-0.2); Basophils % 0.3 % (0.0-0.8); Hematocrit 31.2 VOL% (42.0-52.0); Hemoglobin 10.7 GM/DL (14.0-18.0); Immature Granulocytes % 1.5 %; Immature Granulocytes Absolute 0.48 #; Lymphocytes # 0.7 10*3/uL (1.4-4.0); Lymphocytes % 2.2 % (21.2-54.2); Mean Corpuscular HGB Conc 34.3 GM/DL (32-36); Mean Corpuscular Volume 82.5 FL (87-102); Monocytes # 1.7 10*3/uL (0.11-0.8); Monocytes % 5.3 % (1.7-12.7); NRBC # 0.15 10*3/uL; Neutrophils % 90.7 % (38.7-73.9); Platelet Count 46 T/CUMM (130-400); Red Blood Count 3.78 MC/CUMM (3.8-5.5); Red Cell Distribution Width 17.2 % (9.3-17.3); White Blood Count 32.3 T/CUMM (4-12)
[2022-09-09 04:38] LABS: Albumin 1.6 G/DL (3.4-5.0); Bilirubin,Total 0.6 MG/DL (0.20-1.00); Calcium 7.1 MG/DL (8.5-10.1); Osmolality,Calculated 309.7 MOS/KG (273-304); Phosphorous 3.4 MG/DL (2.5-4.9); Potassium 3.7 MMOL/L (3.5-5.1); Total Protein 4.9 G/DL (6.4-8.2)
[2022-09-09 04:40] LABS: Band Neutrophils 2 % (0-10); Lymphocytes 2 % (20-55); Nucleated Red Blood Cells 2 /100 WBC (0-5); Platelet Estimate Decreased; Total Cells Counted 100
[2022-09-09 04:41] LABS: Hypochromia Slight; Microcytosis Slight
[2022-09-09] MEDS: HYDROmorphone 1 MG/1 ML SYRINGE IV PRN ×3 (06:00→20:03)
[2022-09-09] MEDS: PANTOPRAZOLE 40 MG VIAL IV SCH ×2 (08:35→21:00)
[2022-09-09] MEDS: methylPREDNISolone SOD SUC 40 MG/1 ML VIAL IV SCH ×2 (08:37→21:01)
[2022-09-09] MEDS ORDERED: PHENYTOIN 100 MG/2 ML VIAL IV SCH (10:30)
[2022-09-09] MEDS ORDERED: FOSPHENYTOIN 1,000 MG.PE in SODIUM CHLORIDE 0.9% 250 ML IV ONE (10:30)
[2022-09-09] MEDS ORDERED: EPINEPHrine 1 MG/10 ML SYRINGE ONE (10:48)
[2022-09-09] MEDS ORDERED: LIDOCAINE 100 MG/5 ML SYRINGE ONE (10:49)
[2022-09-09] MEDS ORDERED: LORazepam 2 MG/1 ML VIAL ONE (10:50)
[2022-09-09] MEDS: LORazepam 2 MG/1 ML VIAL IV PRN (11:40)
[2022-09-09] MEDS: NOREPINEPHRINE DRIP 8 MG/250 ML PREMIX IV PRN (11:41)
[2022-09-09] MEDS: MENTHOL/ZINC OXIDE OINT 71 GM JAR TOP SCH ×2 (11:44→21:00)
[2022-09-09] MEDS: VANCOMYCIN 50 MG/ML 60 ML/BOTTLE PO SCH ×3 (11:44→21:00)
[2022-09-09] MEDS: MULTIVITAMIN INJ 10 ML in AMINO ACIDS/DEXT/LYTES 4.25-5% 2,000 ML IV SCH (12:30)
[2022-09-09] MEDS: MICAFUNGIN 100 MG in SODIUM CHLORIDE 0.9% 100 ML IV SCH (15:15)
[2022-09-09] MEDS: PHENYTOIN INJ 100 MG in SODIUM CHLORIDE 0.9% 100 ML IV SCH ×2 (15:15→21:02)
[2022-09-10] MEDS: INSULIN REGULAR 100 UNIT/ML SUBCUT SCH ×4 (00:52→17:35)
[2022-09-10] MEDS: CEFEPIME 1,000 MG in SODIUM CHLORIDE 0.9% 100 ML IV SCH ×3 (00:52→16:45)
[2022-09-10] MEDS: VANCOMYCIN 50 MG/ML 60 ML/BOTTLE PO SCH ×4 (02:40→20:28)
[2022-09-10] MEDS: metroNIDAZOLE INJ 500 MG/100 ML PREMIX IV SCH ×3 (02:40→16:45)
[2022-09-10 04:10] LABS: ABG Base Excess -4.2 MMOL/L (-2.5-2.5); ABG HCO3 20.9 MMOL/L (20-26); ABG Oxygen Saturation 97.6 % (95-100); ABG PCO2 35.2 MM HG (35-48); ABG PH 7.372 (7.35-7.45); ABG TCO2 18.9 MMOL/L (23-27)
[2022-09-10] MEDS: LEVALBUTEROL 1.25 MG/3 ML NEB RESP TX SCH ×7 (04:11→23:51)
[2022-09-10 04:12] LABS: Basophils # 0.1 10*3/uL (0.0-0.2); Basophils % 0.2 % (0.0-0.8); Eosinophils # 0.1 10*3/uL (0.0-0.87); Eosinophils % 0.2 % (0.00-10.9); Hematocrit 28.5 VOL% (42.0-52.0); Hemoglobin 9.9 GM/DL (14.0-18.0); Immature Granulocytes % 7.4 %; Immature Granulocytes Absolute 2.25 #; Lymphocytes # 0.9 10*3/uL (1.4-4.0); Mean Corpuscular HGB Conc 34.7 GM/DL (32-36); Mean Corpuscular Volume 83.6 FL (87-102); Monocytes # 1.3 10*3/uL (0.11-0.8); Monocytes % 4.2 % (1.7-12.7); NRBC # 0.22 10*3/uL; Platelet Count 56 T/CUMM (130-400); Red Blood Count 3.41 MC/CUMM (3.8-5.5); Red Cell Distribution Width 17.3 % (9.3-17.3); White Blood Count 30.6 T/CUMM (4-12)
[2022-09-10 04:29] LABS: Albumin 1.2 G/DL (3.4-5.0); Bilirubin,Total 0.5 MG/DL (0.20-1.00); Calcium 6.9 MG/DL (8.5-10.1); Osmolality,Calculated 314.7 MOS/KG (273-304); Total Protein 4.6 G/DL (6.4-8.2)
[2022-09-10 04:34] LABS: Lymphocytes 1 % (20-55); Nucleated Red Blood Cells 1 /100 WBC (0-5); Total Cells Counted 100
[2022-09-10 04:35] LABS: Hypochromia Slight; Microcytosis 1+; Polychromasia Slight; Target Cells Slight
[2022-09-10 04:36] LABS: Platelet Estimate Decreased
[2022-09-10] MEDS: PHENYTOIN INJ 100 MG in SODIUM CHLORIDE 0.9% 100 ML IV SCH ×3 (06:26→22:00)
[2022-09-10] MEDS: MENTHOL/ZINC OXIDE OINT 71 GM JAR TOP SCH (09:00)
[2022-09-10] MEDS: methylPREDNISolone SOD SUC 40 MG/1 ML VIAL IV SCH ×2 (09:10→20:27)
[2022-09-10] MEDS: PANTOPRAZOLE 40 MG VIAL IV SCH ×2 (09:10→20:30)
[2022-09-10] MEDS: MULTIVITAMIN INJ 10 ML in AMINO ACIDS/DEXT/LYTES 4.25-5% 2,000 ML IV SCH (09:20)
[2022-09-10] MEDS: ALBUMIN 25% 12.5 GM/50 ML VIAL IV SCH ×2 (10:25→16:50)
[2022-09-10] MEDS: FUROSEMIDE 40 MG/4 ML VIAL IV SCH ×2 (10:55→17:45)
[2022-09-10] MEDS: LORazepam 2 MG/1 ML VIAL IV PRN (15:35)
[2022-09-10] MEDS: MICAFUNGIN 100 MG in SODIUM CHLORIDE 0.9% 100 ML IV SCH (17:15)
[2022-09-10 18:24] VITALS: BP 112/66
[2022-09-10] MEDS: HYDROmorphone 1 MG/1 ML SYRINGE IV PRN (20:24)
[2022-09-11] MEDS: ALBUMIN 25% 12.5 GM/50 ML VIAL IV SCH ×2 (00:31→09:01)
[2022-09-11] MEDS: CEFEPIME 1,000 MG in SODIUM CHLORIDE 0.9% 100 ML IV SCH ×3 (00:31→15:52)
[2022-09-11] MEDS: INSULIN REGULAR 100 UNIT/ML SUBCUT SCH ×4 (00:33→17:59)
[2022-09-11] MEDS: metroNIDAZOLE INJ 500 MG/100 ML PREMIX IV SCH ×3 (00:34→16:56)
[2022-09-11] MEDS: HYDROmorphone 1 MG/1 ML SYRINGE IV PRN ×2 (00:34→07:23)
[2022-09-11] MEDS: MENTHOL/ZINC OXIDE OINT 71 GM JAR TOP SCH ×3 (00:45→20:57)
[2022-09-11] MEDS: FUROSEMIDE 40 MG/4 ML VIAL IV SCH ×2 (01:43→09:31)
[2022-09-11 02:33] LABS: Arterial Base Excess iSTAT -4 MMOL/L (-2.5-2.5); Arterial Bicarbonate iSTAT 21.3 MMOL/L (20-26); Arterial O2 Saturation iSTAT 93 % (95-100); Arterial PCO2 iSTAT 38 MM HG (35-48); Arterial PO2 iSTAT 68 MM HG (80-95); Arterial Total CO2 iSTAT 22 MMO/L (23-27); Arterial pH iSTAT 7.355 (7.35-7.45)
[2022-09-11] MEDS: LORazepam 2 MG/1 ML VIAL IV PRN (02:47)
[2022-09-11] MEDS: VANCOMYCIN 50 MG/ML 60 ML/BOTTLE PO SCH ×4 (03:45→20:57)
[2022-09-11] MEDS: LEVALBUTEROL 1.25 MG/3 ML NEB RESP TX SCH ×5 (03:49→19:40)
[2022-09-11] MEDS ORDERED: MIDAZOLAM 2 MG/2 ML VIAL IV ONE (04:22)
[2022-09-11 04:26] LABS: Basophils # 0.1 10*3/uL (0.0-0.2); Basophils % 0.5 % (0.0-0.8); Eosinophils # 0.4 10*3/uL (0.0-0.87); Eosinophils % 1.3 % (0.00-10.9); Hematocrit 29.3 VOL% (42.0-52.0); Lymphocytes # 1.5 10*3/uL (1.4-4.0); Lymphocytes % 5.2 % (21.2-54.2); Mean Corpuscular HGB Conc 34.1 GM/DL (32-36); Mean Corpuscular Volume 84.7 FL (87-102); Monocytes # 0.8 10*3/uL (0.11-0.8); Monocytes % 2.9 % (1.7-12.7); NRBC # 0.29 10*3/uL; Neutrophils % 84.1 % (38.7-73.9); Platelet Count 55 T/CUMM (130-400); Red Blood Count 3.46 MC/CUMM (3.8-5.5); Red Cell Distribution Width 17.9 % (9.3-17.3); White Blood Count 28.4 T/CUMM (4-12)
[2022-09-11] MEDS ORDERED: MIDAZOLAM 2 MG/2 ML VIAL ONE (04:27)
[2022-09-11 04:46] LABS: Albumin 1.6 G/DL (3.4-5.0); Bilirubin,Total 0.9 MG/DL (0.20-1.00); Calcium 7.2 MG/DL (8.5-10.1); Osmolality,Calculated 315.7 MOS/KG (273-304); Potassium 4.5 MMOL/L (3.5-5.1); Total Protein 4.7 G/DL (6.4-8.2)
[2022-09-11] MEDS ORDERED: ROCURONIUM 100 MG/10 ML VIAL IV ONE ×3 (04:55→09:44)
[2022-09-11] MEDS: PHENYTOIN INJ 100 MG in SODIUM CHLORIDE 0.9% 100 ML IV SCH ×3 (05:44→20:57)
[2022-09-11 05:53] LABS: Anisocytosis 1+; Band Neutrophils 12 % (0-10); Eosinophils 4 % (0-10); Lymphocytes 7 % (20-55); Platelet Estimate Decreased; Target Cells Few; Total Cells Counted 100
[2022-09-11 05:54] LABS: Nucleated Red Blood Cells 1 /100 WBC (0-5)
[2022-09-11] MEDS ORDERED: HYDROmorphone 1 MG/1 ML SYRINGE IM ONE (07:22)
[2022-09-11] MEDS ORDERED: HYDROmorphone 1 MG/1 ML SYRINGE IV ONE (07:22)
[2022-09-11] MEDS ORDERED: MIDAZOLAM DRIP 100 MG/100 ML PREMIX IV PRN (07:28)
[2022-09-11] MEDS ORDERED: LORazepam 2 MG/1 ML VIAL IV ONE (07:30)
[2022-09-11] MEDS: fentaNYL INJ 1,250 MCG in SODIUM CHLORIDE 0.9% 225 ML IV PRN ×3 (07:41→19:49)
[2022-09-11] MEDS: MULTIVITAMIN INJ 10 ML in AMINO ACIDS/DEXT/LYTES 4.25-5% 2,000 ML IV SCH (07:51)
[2022-09-11] MEDS: PANTOPRAZOLE 40 MG VIAL IV SCH ×2 (08:57→20:57)
[2022-09-11] MEDS ORDERED: DEXAMETHASONE 4 MG/1 ML VIAL IV SCH (09:00)
[2022-09-11] MEDS ORDERED: FUROSEMIDE 40 MG/4 ML VIAL IV ONE (09:34)
[2022-09-11] MEDS ORDERED: ROCURONIUM 500 MG in SODIUM CHLORIDE 0.9% 500 ML IV PRN (09:54)
[2022-09-11] MEDS ORDERED: MULTIVITAMIN INJ 10 ML in AMINO ACIDS/DEXT/LYTES 4.25-5% 1,000 ML IV SCH (11:00)
[2022-09-11 12:15] LABS: ABG Base Excess -7.8 MMOL/L (-2.5-2.5); ABG HCO3 17.8 MMOL/L (20-26); ABG Oxygen Saturation 76.1 % (95-100); ABG PO2 54.4 MM HG (80-95); ABG TCO2 22.9 MMOL/L (23-27)
[2022-09-11 12:17] LABS: ABG PH 7.097 (7.35-7.45)
[2022-09-11 12:18] LABS: ABG PCO2 78.9 MM HG (35-48)
[2022-09-11] MEDS ORDERED: SODIUM BICARBONATE 50 MEQ/50 ML VIAL IV ONE (12:43)
[2022-09-11] MEDS ORDERED: SODIUM BICARBONATE 50 MEQ/50 ML SYRINGE IV ONE (12:44)
[2022-09-11] MEDS: MICAFUNGIN 100 MG in SODIUM CHLORIDE 0.9% 100 ML IV SCH (15:47)
[2022-09-11] MEDS ORDERED: levETIRAcetam LIQUID 100 MG/ML 30 ML/BOTTLE PO SCH (21:00)
[2022-09-12] MEDS ORDERED: MULTIVITAMIN INJ 10 ML in AMINO ACIDS/DEXT/LYTES 4.25-5% 1,000 ML IV SCH (11:00)
== END 2022-09-11 20:57 | disposition expired | DRG 981 ==
LOC: N.ED 13:44 → N.EDINP 17:30 → SUATTDRO 17:30 → N.3E 18:03 → N.CC 08-28 21:36 → N.TELEN 08-30 16:25 → N.CC 09-07 12:34
PROVIDERS: ADMIT Internal Medicine; ATTEND Internal Medicine